=== PATIENT | male | born 1975 | race Caucasian/White ===

== ENCOUNTER 2023-01-15 17:46 | Emergency (ER) | payer BC ==
[~2023-01-15] VITALS: Ht 182.9 cm; Wt 113.6 kg
[2023-01-15] MEDS ORDERED: EFFE150C2 PO (17:54)
[2023-01-15 18:53] VITALS: BP 153/86; TEMP 99; O2SAT 96
[2023-01-15] MEDS ORDERED: CIPROFLOXACIN 500MG TABLET PO ONE (18:55)
[2023-01-15] MEDS ORDERED: CIPR-249 PO (19:16)
[2023-01-15] MEDS ORDERED: BOOSTRIX VACCINE (TETANUS/DIPHTH/ACEL. PERTUSSIS) 0.5ML SYR IM ONE (19:25)
== END 2023-01-15 19:41 | disposition home or self-care (01) ==
LOC: M ED 17:46
DX: S91.332A Puncture wound without foreign body, left foot, initial encounter (principal); W45.0XXA Nail entering through skin, initial encounter; Y92.009 Unspecified place in unspecified non-institutional (private) residence as the place of occurrence of the external cause; Z79.2 Long term (current) use of antibiotics; Z79.899 Other long term (current) drug therapy